=== PATIENT | female | born 1970 | race Caucasian/White ===

== ENCOUNTER → 2018-01-09 | Outpatient (CLI) | payer OTHER ==
[~2018-01-09] MED LIST: ARIP10 PO; DIAZ5 PO; DULO30 PO; DULO60 PO; HYDACE5 PO; HYDACE5325; LISINOPRIL PO; MEDICAL MARIJUANA; METFORMIN PO; NAPR550 PO; REQUIP PO; ROPI.25 PO; RXHYDACE PO; SIMV5 PO; VENL25
[2018-01-10 08:58] LABS: Source VAGINAL CUFF
== END | disposition home or self-care (01) ==
LOC: LAB 16:17 → LAB SHORT 16:17
PROVIDERS: Obstetrics & Gynecology
DX: Z01.419 Encounter for gynecological examination (general) (routine) without abnormal findings (principal)
CPT/HCPCS: G0123